=== PATIENT | male | born 1985 | race Caucasian/White ===

== ENCOUNTER 2020-11-16 13:16 | Emergency (ER) | payer SELFPAY ==
[2020-11-16 13:38] VITALS: BP 151/82; PULSE 119
== END 2020-11-16 14:45 ==
LOC: JD.ED 13:16
DX: M25.552 Pain in left hip (principal); Z53.21 Procedure and treatment not carried out due to patient leaving prior to being seen by health care provider

== ENCOUNTER 2021-07-16 09:34 | Emergency (ER) | payer SELFPAY ==
[2021-07-16 09:50] VITALS: BP 125/85; PULSE 86
[2021-07-16] MEDS ORDERED: predniSONE 20 MG Tab PO ONE (10:08)
== END 2021-07-16 10:20 | disposition home or self-care (01) ==
LOC: JD.ED 09:34
DX: M54.41 Lumbago with sciatica, right side (principal); Z72.0 Tobacco use
CPT/HCPCS: 99283; J7512; 99284